=== PATIENT | female | born 1940 | race African-American/Black ===

== ENCOUNTER → 2017-06-03 | Outpatient (POV) ==
[2013-05-05 12:01] VITALS: TEMP 96.9
[2016-05-16 10:52] VITALS: BMI 26.6
== END ==
LOC: OUTPT 00:01
PROVIDERS: ATTEND Otolaryngology
DX: H91.90 Unspecified hearing loss, unspecified ear (principal)
CPT/HCPCS: 92557; 92567

== ENCOUNTER 2017-06-11 10:46 | Emergency (ER) | payer OTHER ==
[2017-06-11 10:56] VITALS: BP 128/72; TEMP 99; BMI 27.3
[2017-06-11 11:28] LABS: BASOPHILS % (AUTO) 0.5 % (0.0-3.0); EOSINOPHILS # (AUTO) 0.1 K/ul (0.0-0.7); EOSINOPHILS % (AUTO) 1.4 % (0.0-7.0); HEMATOCRIT 40.6 % (37.0-47.0); HEMOGLOBIN 13.2 g/dl (12.0-16.0); IMMATURE GRANULOCYTE % (AUTO) 0.5 % (0.0-5.0); LYMPHOCYTES # (AUTO) 1.4 K/uL (0.60-3.4); LYMPHOCYTES % (AUTO) 24.5 (10.0-50.0); MEAN CORPUSCULAR HEMOGLOBIN 28.9 pg (27.0-31.0); MEAN CORPUSCULAR HGB CONC 32.5 (31.8-35.4); MEAN CORPUSCULAR VOLUME 88.8 fl (81.0-99.0); MONOCYTES # (AUTO) 0.5 K/uL (0.4-2.0); MONOCYTES % (AUTO) 9.7 (0-10); NEUTROPHILS # (AUTO) 3.5 K/ul (2.0-6.9); NEUTROPHILS % (AUTO) 63.4; PLATELET COUNT 210 10^3/uL (140-440); RED BLOOD COUNT 4.57 10^6/ul (4.20-5.40); WHITE BLOOD COUNT 5.56 K/ul (4.6-10.2)
[2017-06-11 12:09] LABS: ALANINE AMINOTRANSFERASE 32 U/L (12-78); ALBUMIN 3.6 g/dL (3.4-5.0); ALBUMIN/GLOBULIN RATIO 1.33; ALKALINE PHOSPHATASE 68 U/L (53-141); ANION GAP 16.1; ASPARTATE AMINO TRANSFERASE 27 U/L (15-37); BILIRUBIN,TOTAL 0.26 mg/dL (0.00-1.20); BLOOD UREA NITROGEN 13 mg/dL (7-18); BUN/CREATININE RATIO 14.44; CALCIUM 9.4 mg/dL (8.2-10.2); CARBON DIOXIDE 23 mmol/L (23-31); CHLORIDE 106 mmol/L (98-107); CREATINE KINASE 230 U/L; CREATINE KINASE MB 0.9 ng/ml (0.0-3.6); GLUCOSE 164 mg/dL (82-115); POTASSIUM 4.1 mmol/L (3.5-5.10); SODIUM 141 mmol/L (136-145); TOTAL PROTEIN 6.3 g/dL (5.8-8.1)
--- NOTE | 2017-06-11 12:54 | ED.PDOC ---
General ED Provider: Dr. JADA AMBRIZ Chief Complaint: Dizziness Stated Complaint: weakness, generalized Time Seen by Physician: 11:00 (seen with staff no deficits on arrival) Mode of Arrival: Ambulance Information Source: Patient, EMT Exam Limitations: No limitations [facility] Nursing and Triage Documentation Reviewed and Agree: Yes Neurological Complaint Exam - Weakness Complaint/Exam Last Known Well: 2 days Onset: Gradual Duration: 2 days Symptoms Are: Resolved Timing: Intermittent Episodes Lasting: Minutes Initial Severity: Mild Current Severity: None Aggravating: Reports: None Alleviating: Reports: None Associated Signs and Symptoms: Denies: Nausea, Vomiting, Diaphoresis, Tinnitus, Chest pain, Short of air, Palpitations, Unsteady gait, GI blood loss, Visual changes, Decreased oral intake, Change in medication, Change in diet, OTC meds, Loss of balance Cardiac Risk Factors: Reports: Hypertension, Diabetes CVA Risk Factors: Reports: Diabetes, Hypertension Related Surgical History: Reports: None JVD Present: No Carotid Bruit Present: No Glascow Coma Scale (see protocol): 15 Nystagmus Present: No Gag Reflex Present: Yes Meningeal Signs Positive: No Focal Weakness: Present: None Focal Sensory Loss: Present: None Gait: Normal Differential Diagnoses: Hypovolemia, Medication reaction, Metabolic abnormalities, Vasovagal reaction Quality Indicators for Cardiac Chest Pain: EKG in 10min. Quality Indicators for AMI: EKG in 10min. Quality Indicator For Non-Traumatic Chest Pain/Syncope: EKG Performed Review of Systems - Review Of Systems Constitutional: Reports: Malaise, Weakness Eyes: Reports: No symptoms Ears, Nose, Mouth, Throat: Reports: No symptoms Respiratory: Reports: No symptoms Cardiac: Reports: No symptoms GI: Reports: No symptoms : Reports: No symptoms Musculoskeletal: Reports: No symptoms Skin: Reports: No symptoms Neurological: Reports: No symptoms Endocrine: Reports: No symptoms Hematologic/Lymphatic: Reports: No symptoms All Other Systems: Reviewed and Negative Past Medical History - Past Medical History Endocrine: Reports: DM 2 Cardiovascular: Reports: Hypertension Respiratory: Reports: None Hematological: Reports: None Gastrointestinal: Reports: None (discussed diabetes and diet- states has only been borderline 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 Uses crackers and peanut butter"I stuff myself to try to get energy" in the morning- ususal breakfast is coffee and sugar. has gained weight since hysterectomy.) Genitourinary: Reports: None Neuro/Psych: Reports: None Musculoskeletal: Reports: None Cancer: Reports: None Last Menstrual Period: menopause Other Pertinent Past Medical History: MASS ON OVARY/diabetes is diet controlled - Surgical History General Surgical History: Reports: None - Family History Family History: Reports: Unknown - Social History Smoking Status: Never smoker Hx Substance Use: No Alcohol Screening: Occasionally Physical Exam - Physical Exam Appearance: Well-appearing, No pain distress, Well-nourished Eyes: GIRMA, EOMI, Conjunctiva clear ENT: Ears normal, Nose normal, Oropharynx normal Respiratory: Airway patent, Breath sounds clear, Breath sounds equal, Respirations nonlabored Cardiovascular: RRR, Pulses normal, No rub, No murmur GI/: Soft, Nontender, No masses, Bowel sounds normal, No Organomegaly Musculoskeletal: Normal strength, ROM intact, No edema, No calf tenderness Skin: Warm, Dry, Normal color Neurological: Sensation intact, Motor intact, Reflexes intact, Cranial nerves intact, Alert, Oriented Psychiatric: Affect appropriate, Mood appropriate Critical Care Note - Critical Care Note Total Time (mins): 0 Course - Course Hematology/Chemistry: 06/11/17 11:25 06/11/17 11:25 Orders, Labs, Meds: Lab Review 06/11/17 11:25 WBC 5.56 RBC 4.57 Hgb 13.2 Hct 40.6 MCV 88.8 MCH 28.9 MCHC 32.5 RDW Coeff of Lily 13.9 Plt Count 210 Immature Gran % (Auto) 0.5 Neut % (Auto) 63.4 Lymph % (Auto) 24.5 Edwards % (Auto) 9.7 Eos % (Auto) 1.4 Baso % (Auto) 0.5 Immature Gran # (Auto) 0.0 Neut # 3.5 Lymph # 1.4 Edwards # 0.5 Eos # 0.1 Baso # 0.0 Sodium 141 Potassium 4.1 Chloride 106 Carbon Dioxide 23 Anion Gap 16.1 BUN 13 Creatinine 0.90 Estimated GFR (MDRD) 73.00 BUN/Creatinine Ratio 14.44 Glucose 164 H Calcium 9.4 Total Bilirubin 0.26 AST 27 ALT 32 Alkaline Phosphatase 68 Total Creatine Kinase 230 CK-MB (CK-2) 0.9 CK-MB (CK-2) % 0.15738 Troponin I < 0.0100 Total Protein 6.3 Albumin 3.6 Globulin 2.7 Albumin/Globulin Ratio 1.33 TSH 0.606 Free T4 0.88 Orders Category Date Time Status EKG-(ED ONLY) Stat CARDIO 06/11/17 11:16 Completed CBC W/ AUTO DIFF Stat LAB 06/11/17 11:25 Completed COMPREHENSIVE METABOLIC PANEL Stat LAB 06/11/17 11:25 Completed CREATINE KINASE Stat LAB 06/11/17 11:25 Completed FREE T4 (FREE THYROXINE) Stat LAB 06/11/17 11:25 Completed THYROID STIMULATING HORMONE Stat LAB 06/11/17 11:25 Completed TROPONIN I Stat LAB 06/11/17 11:25 Completed Vital Signs: Temp Pulse Resp BP Pulse Ox 06/11/17 10:47 99 F 80 20 128/72 96 Departure - Departure Time of Disposition: 12:53 (d/c inst given with bindu at bedside urged to follow up with PMD BUL[facility]) Disposition: HOME SELF-CARE Discharge Problem: Weakness Instructions: Weakness (ED) Condition: Good Pt referred to PMD for follow-up: Yes Additional Instructions: Please call your Family Physician as soon as possible to schedule a follow-up appointment. Allergies/Adverse Reactions: Allergies Penicillins Adverse Reaction (Verified 06/11/17 10:59) Home Medications: Ambulatory Orders Olmesartan Medoxomil [Benicar] 20 mg PO DAILY tab-cap 06/03/17 Disposition Discussed With: Patient
== END 2017-06-11 13:20 | disposition home or self-care (01) ==
LOC: ED 10:46
DX: R53.1 Weakness (principal); R42 Dizziness and giddiness; E11.9 Type 2 diabetes mellitus without complications; I10 Essential (primary) hypertension
CPT/HCPCS: 36415; 80053; 82550; 82553; 84439; 84443; 84484; 85025; 93005; 93010; 99283

== ENCOUNTER 2018-03-04 12:42 | Emergency (ER) | payer OTHER ==
[2018-03-04 12:48] VITALS: BP 147/87; TEMP 97.2; BMI 26.6
--- NOTE | 2018-03-04 13:09 | ED.PDOC ---
General ED Provider: Dr. JADA AMBRIZ Chief Complaint: Extremity Pain/Injury Stated Complaint: back pain Time Seen by Physician: 13:00 Mode of Arrival: Walk-In Information Source: Patient Exam Limitations: No limitations Primary Care Provider: SNADI PEREZ Nursing and Triage Documentation Reviewed and Agree: Yes Reviewed sepsis parameters & appropriate labs ordered?: Yes System Inflammatory Response Syndrome: Not Applicable Sepsis Protocol: For patient's 13 years and over: Temp is 96.8 and below OR 101 and greater Pulse >90 BPM Resp >20/minute Acutely Altered Mental Status Are patient's symptoms suggestive of a new infection, such as: -Pneumonia -Skin, Soft Tissue -Endocarditis -UTI -Bone, Joint Infection -Implantable Device -Acute Abdominal Infection -Wound Infection -Meningitis -Blood Stream Catheter Infection -Unknown System Inflammatory Response Syndrome: Not Applicable Musculoskeletal Complaint Exam - Back Pain Complaint/Exam Mechanism of Injury: Reports: No known trauma (was streching) Onset/Duration: 1hr ago sudden Symptoms Are: Still present Timing: Constant Episodes Lasting: Minutes Initial Severity: Moderate Current Severity: Moderate Location: Reports: Discrete Character: Reports: Aching, Spasmodic Aggravating: Reports: Lifting, Bending, Walking Alleviating: Reports: Position Associated Signs and Symptoms: Denies: Swelling, Redness, Bruising, Fever, Weakness, Numbness, Tingling, Abdominal pain, Flank pain, Bladder incontinence, Bowel incontinence, Weight loss, Pain with weight bearing Related History: Reports: Similar episode TAD Risk Factors: Reports: None Cauda Equina Risk Factors: Reports: None Epidural Abcess Risk Factors: Reports: None Related Surgical History: Reports: None Focal Tenderness: No Paraspinal Muscle Tenderness: No Paraspinal Muscle Spasm: No Scoliosis: No Lordosis: No Kyphosis: No SLR Test: Right Negative, Left Negative Hip Motion Testing Pain: Right Negative, Left Negative Focal Weakness: Present: None Focal Sensory Loss: Present: None Gait: Present: Normal Differential Diagnoses: Strain, Sprain Review of Systems - Review Of Systems Constitutional: Reports: No symptoms Eyes: Reports: No symptoms Ears, Nose, Mouth, Throat: Reports: No symptoms Respiratory: Reports: No symptoms Cardiac: Reports: No symptoms GI: Reports: No symptoms : Reports: No symptoms Musculoskeletal: Reports: Back pain Skin: Reports: No symptoms Neurological: Reports: No symptoms Endocrine: Reports: No symptoms Hematologic/Lymphatic: Reports: No symptoms All Other Systems: Reviewed and Negative Past Medical History - Past Medical History Previously Healthy: Yes Endocrine: Reports: DM 2 Cardiovascular: Reports: Hypertension Respiratory: Reports: None Hematological: Reports: None Gastrointestinal: Reports: None (discussed diabetes and diet- states has only been borderline 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 Uses crackers and peanut butter"I stuff myself to try to get energy" in the morning- ususal breakfast is coffee and sugar. has gained weight since hysterectomy.) Genitourinary: Reports: None Neuro/Psych: Reports: None Musculoskeletal: Reports: None Cancer: Reports: None Last Menstrual Period: none Other Pertinent Past Medical History: MASS ON OVARY/diabetes is diet controlled - Surgical History General Surgical History: Reports: None - Family History Family History: Reports: Unknown - Social History Smoking Status: Never smoker Hx Substance Use: No Alcohol Screening: Occasionally Physical Exam - Physical Exam Appearance: Well-appearing, No pain distress, Well-nourished Eyes: GIRMA, EOMI, Conjunctiva clear ENT: Ears normal, Nose normal, Oropharynx normal Respiratory: Airway patent, Breath sounds clear, Breath sounds equal, Respirations nonlabored Cardiovascular: RRR, Pulses normal, No rub, No murmur GI/: Soft, Nontender, No masses, Bowel sounds normal, No Organomegaly Musculoskeletal: Normal strength, ROM intact, No edema, No calf tenderness Skin: Warm, Dry, Normal color Neurological: Sensation intact, Motor intact, Reflexes intact, Cranial nerves intact, Alert, Oriented Psychiatric: Affect appropriate, Mood appropriate Critical Care Note - Critical Care Note Total Time (mins): 0 Course - Course Vital Signs: Temp Pulse Resp BP Pulse Ox 03/04/18 12:42 97.2 F L 80 16 147/87 H 96 Departure - Departure Time of Disposition: 13:08 Disposition: HOME SELF-CARE Discharge Problem: Low back pain Qualifiers: Chronicity: unspecified Back pain laterality: unspecified Sciatica presence: without sciatica Qualified Code(s): M54.5 - Low back pain Instructions: Back Pain (ED) Condition: Good Pt referred to PMD for follow-up: Yes IPMP verified?: No Allergies/Adverse Reactions: Allergies Penicillins Adverse Reaction (Verified 03/04/18 12:48) Home Medications: Ambulatory Orders 1 [No Reported Medications] 03/04/18 Disposition Discussed With: Patient
== END 2018-03-04 13:16 | disposition home or self-care (01) ==
LOC: ED 12:42
DX: M54.5 Low back pain (principal); E11.9 Type 2 diabetes mellitus without complications; R53.1 Weakness; I10 Essential (primary) hypertension
CPT/HCPCS: 99282